=== PATIENT | male | born 2000 | race Caucasian/White ===

== ENCOUNTER 2024-08-20 09:48 | Day surgery (SDC) | payer OTHER ==
[2024-08-20] MEDS ORDERED: Famotidine/PF 20 mg/2ml Vial ONE (12:05)
[2024-08-20] MEDS ORDERED: PROPOFOL 20 ML ONE (12:15)
[2024-08-20] MEDS ORDERED: Lidocaine 2% PF 5 ML VIAL ONE (12:15)
[2024-08-20] MEDS ORDERED: fentaNYL 50 mcg/mL 1 mL Vial ONE ×3 (12:15→13:32)
[2024-08-20] MEDS ORDERED: Midazolam HCl 2 mg/2 ml Vial ONE (12:23)
[2024-08-20] MEDS ORDERED: Ondansetron PF 4 MG/2 ML Vial ONE (12:33)
[2024-08-20] MEDS ORDERED: Dexamethasone 4 mg/ml Vial ONE (12:33)
[2024-08-20] MEDS ORDERED: Ferric Subsulfate 8 ML TOPICAL SOLN ONE (12:37)
[2024-08-20] MEDS ORDERED: Naloxone HCl 0.4 mg/ml Vial ONE (12:55)
[2024-08-20] MEDS ORDERED: Hydrocodone-Acetamin 15 ML UDCUP ONE (14:30)
== END 2024-08-20 15:30 | disposition home or self-care (01) ==
LOC: CSHSDC 09:48
PROVIDERS: ATTEND Specialist
PROC: 0CTPXZZ Resection of Tonsils, External Approach (ICD-10-PCS; principal; 2024-08-20)
DX: J35.1 Hypertrophy of tonsils (principal); L50.9 Urticaria, unspecified; Z88.1 Allergy status to other antibiotic agents; Z88.8 Allergy status to other drugs, medicaments and biological substances; Z88.4 Allergy status to anesthetic agent; Z79.899 Other long term (current) drug therapy
CPT/HCPCS: 88304; J1100; J2250; J2310; J2405; J2704; J3010; J3490